=== PATIENT | female | born 1970 | race Caucasian/White ===

== ENCOUNTER → 2016-10-28 | Outpatient (CLI) | payer OTHER ==
[~2016-10-28] MED LIST: BNT20 PO; FLVUNK; IUD
== END | disposition home or self-care (01) ==
LOC: C.PAPS 12:58
PROVIDERS: ATTEND Obstetrics & Gynecology
DX: Z12.4 Encounter for screening for malignant neoplasm of cervix (principal)

== ENCOUNTER → 2016-11-05 | Outpatient (CLI) | payer OTHER ==
--- NOTE | 2016-11-08 07:35 | MAMMOGRAPHY REPORT ---
BILATERAL DIGITAL DIAGNOSTIC MAMMOGRAM TOMOSYNTHESIS WITH CAD AND TARGETED RIGHT ULTRASOUND: 11/06/19 17 CLINICAL HISTORY: 45-year-old woman whose physician recently felt a lump in the right breast on phys ical exam. The patient reports baseline lumpiness in both breasts. No skin erythema, thickening or nipple discharge. TECHNIQUE: Bilateral breast tomosynthesis in addition to standard 2D mammography was performed. Curr ent study was also evaluated with a Computer Aided Detection (CAD) system. COMPARISON: Comparison is made to exam dated: 08/03/2015 mammogram - [facility]. BREAST COMPOSITION: The tissue of both breasts is extremely dense, which lowers the sensitivity of mammography. FINDINGS: A triangle skin palpable marker overlies the upper outer anterior right breast, denoting t he palpable lump pointed out by the patient. There are partially circumscribed and obscured masses within the right breast. In particular a partially circumscribed 2 cm mass is seen along the product development assistant ior nipple line on the right CC view, there is a partially circumscribed 15 mm mass in the superior middle one third of the right breast on the MLO view, and a possible 12 mm mass in the lateral middl e one third of the right breast on the CC view. This mass may correlate as palpated. No suspicious spiculated or irregular mass is identified bilaterally. No focal area of architectural distortion or suspicious microcalcifications. Targeted ultrasound was performed in the area of palpable lump pointed out by the patient (12:00 rig ht breast, 2 cm from the nipple). There is a lobulated anechoic cyst and several smaller adjacent a nechoic cysts. The dominant cyst in this location measures 15.8 x 10.9 x 18.0 mm. Incidental note is made of several other anechoic cysts scattered in the right breast. In particular in the 11:00 r ight breast there is a lobulated anechoic cyst measuring 6.1 x 4.9 x 6.0 mm. An oval parallel circu mscribed anechoic cyst with posterior acoustic enhancement is identified in the 9:00 periareolar rig ht breast measuring 12.9 x 6.1 x 11.4 mm. A large lobulated anechoic cyst is seen in the 2:00 peria reolar right breast measuring 24.5 x 7.6 x 23.5 mm. No suspicious solid mass is seen on ultrasound. IMPRESSION: ACR BI-RADS CATEGORY 2: BENIGN, TARGETED ULTRASOUND ACR BI-RADS CATEGORY 2: BENIGN 1. The palpable abnormality in the upper outer 12:00 right breast correlates with a benign 18 mm an echoic simple cyst on ultrasound. Numerous other anechoic cysts are scattered throughout the right breast, compatible with fibrocystic changes. 2. There is no mammographic evidence of malignancy bilaterally. No targeted sonographic evidence o f malignancy in the right breast. Clinical follow-up is recommended, as biopsy of a clinically suspicious mass should not be precluded by negative imaging. Would also recommend routine bilateral mammography in one year. Approximately 10% of breast cancers are not detected with mammography. A negative mammographic repor t should not delay biopsy if a clinically suggestive mass is present. Scarlet Miller M.D. ay/:11/05/2016 16:10:30 Transfer Specialist: Nhung CUNHA)(Margaret), [facility] letter sent: Normal 1/2 BI-RADS Code: ACR BI-RADS Category 2: Benign Ultrasound BI-RADS: ACR BI-RADS Category 2: Benign
== END | disposition home or self-care (01) ==
LOC: C.MAMM 13:48
PROVIDERS: ATTEND Obstetrics & Gynecology
DX: N63 Unspecified lump in breast (principal)

== ENCOUNTER → 2017-10-01 | Outpatient (CLI) | payer OTHER ==
[2017-10-01 17:46] LABS: BASO % 0.6 %; BASO ABS # 0.04 K/uL (0-0.2); EOS % 2.7 %; EOS ABS # 0.18 K/uL (0-0.5); HEMATOCRIT 38.4 % (37-47); HEMOGLOBIN 12.8 g/dL (12.0-16.0); IG# 0.01 K/uL (0.00-0.02); LYMPH % 34.7 %; MEAN CELL VOLUME 98.7 fL (80-100); MEAN CORPUSCULAR HEMOGLOBIN 32.9 pg (25-34); MEAN CORPUSCULAR HGB CONC 33.3 g/dl (32-36); MEAN PLATELET VOLUME 9.5 fL (7.4-10.4); MONO % 7.6 %; NEUT % 54.2 %; NEUT ABS # 3.59 K/uL (1.4-6.5); PLATELET COUNT 343 K/uL (130-400); RED CELL DISTRIBUTION WIDTH CV 13.1 % (11.5-14.5); RED CELL DISTRIBUTION WIDTH SD 47.2 fL (36.4-46.3); WHITE BLOOD COUNT 6.62 K/uL (4.8-10.8)
[2017-10-01 18:17] LABS: ALBUMIN 3.7 gm/dl (3.4-5.0); ALT/SGPT 23 U/L (12-78); AST/SGOT 8 U/L (15-37); BLOOD UREA NITROGEN 12 mg/dl (7-18); CALCIUM 8.5 mg/dl (8.5-10.1); CARBON DIOXIDE 28 mmol/L (21-32); CREATININE 0.79 mg/dl (0.60-1.20); GLUCOSE 83 mg/dl (70-99); POTASSIUM 4.1 mmol/L (3.5-5.1); SODIUM 139 mmol/L (136-145)
[2017-10-01 18:27] LABS: ALKALINE PHOSPHATASE 37 U/L (45-117); TOTAL PROTEIN 6.7 gm/dl (6.4-8.2)
== END | disposition home or self-care (01) ==
LOC: C.LAB1850 16:45
PROVIDERS: ATTEND Internal Medicine
DX: H02.849 Edema of unspecified eye, unspecified eyelid (principal)